=== PATIENT | female | born 1970 | race American Indian/Alaskan Native ===

== ENCOUNTER 2019-05-17 04:48 | Emergency (ER) | payer MEDICAID ==
[2019-05-17] MEDS ORDERED: SOLU-Medrol IM ONE (08:21)
--- NOTE | 2019-05-17 08:24 | Emergency Department Report ---
ED Back Pain/Injury HPI - General Chief Complaint: Back Pain/Injury Stated Complaint: BACK PAIN/SCIATICA Time Seen by Provider: 05/17/19 08:18 Source: patient, EMS Limitations: No Limitations - History of Present Illness Initial Comments: Patient is 49 years old female with history of hypertension, diabetes and sciatica. Patient presented to the ER complaining of lower back pain that radiated down to her right leg. Patient stated that symptoms started 3 days ago. Patient stated that symptoms similar to her previous episodes. Patient denied any recent trauma, fever, weight loss, weakness numbness, tingling sensation. Patient also denied any bowel or bladder incontinence. MD Complaint: back pain -: days(s) (3) Similar Symptoms Previously: Yes Radiation: right leg Severity: moderate Quality: sharp Improves With: immobilization Worsens With: movement Associated Symptoms: denies other symptoms - Related Data Allergies Allergy/AdvReac Type Severity Reaction Status Date / Time clindamycin Allergy Unknown Verified 05/17/19 04:56 haloperidol [From Haldol] Allergy Unknown Verified 05/17/19 04:56 hydralazine Allergy Unknown Verified 05/17/19 04:56 niacin Allergy Unknown Verified 05/17/19 04:56 [From Niaspan Extended-Release] rifampin Allergy Unknown Verified 05/17/19 04:56 ED Review of Systems ROS: Stated complaint: BACK PAIN/SCIATICA Other details as noted in HPI Comment: All other systems reviewed and negative Constitutional: denies: chills, fever Respiratory: denies: cough, shortness of breath, SOB with exertion Cardiovascular: denies: chest pain, palpitations Gastrointestinal: denies: abdominal pain, nausea, vomiting Neurological: denies: headache, weakness, numbness, paresthesias, confusion, abnormal gait ED Past Medical Hx - Past Medical History Previous Medical History?: Yes Hx Hypertension: Yes Hx Diabetes: Yes Additional medical history: Fibroidmylagia. sciatica - Surgical History Past Surgical History?: Yes Additional Surgical History: x4. partial hyster. hernia - Social History Smoking Status: Current Every Day Smoker Substance Use Type: Alcohol ED Physical Exam - General Limitations: No Limitations General appearance: alert, in no apparent distress - Head Head exam: Present: atraumatic, normocephalic, normal inspection - Eye Eye exam: Present: normal appearance, PERRL - ENT ENT exam: Present: normal exam, normal orophraynx, mucous membranes moist - Neck Neck exam: Present: normal inspection, full ROM. Absent: tenderness, meningismus, lymphadenopathy, thyromegaly - Respiratory Respiratory exam: Present: normal lung sounds bilaterally - Cardiovascular Cardiovascular Exam: Present: regular rate, normal rhythm, normal heart sounds - GI/Abdominal GI/Abdominal exam: Present: soft, normal bowel sounds. Absent: distended, tenderness, guarding, rebound, rigid, organomegaly, mass, bruit, pulsatile mass, hernia - Extremities Exam Extremities exam: Present: normal inspection, full ROM, normal capillary refill. Absent: tenderness, pedal edema, calf tenderness - Back Exam Back exam: Present: normal inspection, full ROM. Absent: CVA tenderness (R), CVA tenderness (L), muscle spasm, paraspinal tenderness, vertebral tenderness - Neurological Exam Neurological exam: Present: alert, oriented X3, CN II-XII intact, normal gait, reflexes normal - Psychiatric Psychiatric exam: Present: normal mood - Skin Skin exam: Present: warm, intact, normal color ED Course Vital Signs 05/17/19 05/17/19 04:50 04:53 Temperature 98.0 F 98.0 F Pulse Rate 93 H Respiratory 16 Rate Blood Pressure 147/91 O2 Sat by Pulse 94 Oximetry ED Medical Decision Making - Radiology Data Radiology results: image reviewed - Medical Decision Making Patient's symptoms consistent with sciatica. No alarming symptoms or signs. Patient received Solu-Medrol in the emergency room. Patient given a prescription for Naprosyn and Flexeril and advised to follow-up with her primary care physician in the next 2-3 days and to return to the ER if symptoms are not improved. Critical care attestation.: If time is entered above; I have spent that time in minutes in the direct care of this critically ill patient, excluding procedure time. ED Disposition Clinical Impression: Acute back pain, Sciatica Disposition: - TO HOME OR SELFCARE Is pt being admited?: No Condition: Stable Instructions: Lumbar Radiculopathy (ED) Referrals: PRIMARY CARE,MD [Primary Care Provider] - 3-5 Days
--- NOTE | 2019-05-17 09:07 | XRay Report ---
LUMBOSACRAL SPINE, 3 VIEWS INDICATION: BACK INJURY. Lower back pain for several days on and off, patient complains of sciatica COMPARISON: None. IMPRESSION: Normal bone mineralization. No evidence for compression deformity or bone lesion. The s acrum and SI joints are unremarkable. 3 mm anterolisthesis of L4 with respect to L5 is identified. T his appears to be secondary to degenerative facet arthropathy. The remaining lumbar vertebra are norm al in alignment. There is mild disc space narrowing at L4-5 and L5-S1. Mild to moderate diffuse facet arthropathy is identified which is most pronounced at L4-5. Signer Name: Adam Echols Jr, MD Signed: 05/17/2019 9:02 AM Workstation Name: [id number]
[2019-05-17 10:10] VITALS: BP 139/102
== END 2019-05-17 09:45 | disposition home or self-care (01) ==
LOC: ED 04:48
DX: M54.30 Sciatica, unspecified side (principal); I10 Essential (primary) hypertension; E11.9 Type 2 diabetes mellitus without complications; F17.200 Nicotine dependence, unspecified, uncomplicated; Z90.710 Acquired absence of both cervix and uterus; Z98.890 Other specified postprocedural states; Z79.899 Other long term (current) drug therapy
CPT/HCPCS: 72100; 96372; 99283; J2930